=== PATIENT | female | born 2000 | race Caucasian/White ===

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

== ENCOUNTER → 2019-01-31 19:03 | Outpatient (CLI) | payer OTHER ==
[2016-12-01 09:50] VITALS: BMI 24.2
[~2019-01-31 19:03] MED LIST: BIRTH CONTROL
== END | disposition home or self-care (01) ==
LOC: D.LABREF 19:03
PROVIDERS: ATTEND Urology
DX: D72.819 Decreased white blood cell count, unspecified (principal)